=== PATIENT | male | born 1995 | race Caucasian/White ===

== ENCOUNTER 2017-03-16 19:25 | Emergency (ER) | payer BC, MEDICAID ==
[2017-03-16 19:33] VITALS: BMI 27.3
[2017-03-16 19:36] VITALS: RESP 16; TEMP 98.1
--- NOTE | 2017-03-16 19:46 | ED PDOC ---
Arrival/HPI <Karthik Siegel - Last Filed: 03/16/17 21:05> - General Historian: Patient <Chicho Mcelroy - Last Filed: 03/19/17 11:40> - General Chief Complaint: Lower Extremity Problem/Injury Time Seen by Provider: 03/16/17 19:42 - History of Present Illness Narrative History of Present Illness (Text): 03/16/17 19:43 22 y/o male, no significant pmh, nkda, c/o lt. knee pain and swelling x 2 weeks. Pt. stated that he has lt. knee pain s/p injured it from running, been feeling the lt. knee is warm, no calf pain, no fever or chills, on and off pain , no skin redness, no difficulty bending or extending the painful knee, no other medical or psychological complaints. (Chicho Mcelroy) Past Medical History - Provider Review Nursing Documentation Reviewed: Yes - Infectious Disease Hx of Infectious Diseases: None - Cardiac Hx Cardiac Disorders: No (DENIES) - Pulmonary Hx Respiratory Disorders: No (DENIES) - Musculoskeletal/Rheumatological Hx Falls: No - Psychiatric Hx Psychophysiologic Disorder: No (DENIES) Hx Substance Use: No - Anesthesia Hx Anesthesia: No - Suicidal Assessment Feels Threatened In Home Enviroment: No <Chicho Mcelroy - Last Filed: 03/19/17 11:40> Family/Social History - Physician Review Nursing Documentation Reviewed: Yes Family/Social History: Unknown Family HX Smoking Status: Never Smoked Hx Alcohol Use: No Hx Substance Use: No <Chicho Mcelroy - Last Filed: 03/19/17 11:40> Allergies/Home Meds <Karthik Siegel - Last Filed: 03/16/17 21:05> <Chicho Mcelroy - Last Filed: 03/19/17 11:40> Allergies/Adverse Reactions: Allergies No Known Allergies Allergy (Verified 03/10/15 16:24) Review of Systems - Review of Systems Constitutional: absent: Fatigue, Fevers Eyes: absent: Vision Changes ENT: absent: Hearing Changes Respiratory: absent: SOB, Cough Cardiovascular: absent: Chest Pain Gastrointestinal: absent: Abdominal Pain, Nausea, Vomiting Musculoskeletal: Arthralgias, Joint Swelling. absent: Back Pain, Neck Pain, Myalgias Skin: absent: Rash, Pruritis, Skin Lesions <Chicho Mcelroy - Last Filed: 03/19/17 11:40> Physical Exam Vital Signs Reviewed: Yes Temperature: Afebrile Blood Pressure: Normal Pulse: Regular Respiratory Rate: Normal Appearance: Positive for: Well-Appearing, Non-Toxic, Comfortable Pain Distress: Moderate Mental Status: Positive for: Alert and Oriented X 3 - Systems Exam Head: Present: Atraumatic, Normocephalic Pupils: Present: PERRL Extroacular Muscles: Present: EOMI Conjunctiva: Present: Normal Mouth: Present: Moist Mucous Membranes Neck: Present: Normal Range of Motion Respiratory/Chest: Present: Clear to Auscultation, Good Air Exchange. No: Respiratory Distress, Accessory Muscle Use Cardiovascular: Present: Regular Rate and Rhythm, Normal S1, S2. No: Murmurs Abdomen: Present: Normal Bowel Sounds. No: Tenderness, Distention, Peritoneal Signs Back: Present: Normal Inspection Upper Extremity: Present: Normal Inspection. No: Cyanosis, Edema Lower Extremity: Present: Normal Inspection, Other (Lt knee: +ttp and mild swelling anterior/medially, no erythematous rash, negative selene and stone signs, no celluitis or streaking, no ulcers, FROM without limitation, sensation intact, motor 5/5, +DPPT pulses, capillary refill< 2 second, neurovascular intact). No: Edema Neurological: Present: GCS=15, Speech Normal, Motor Func Grossly Intact, Gait Normal, Memory Normal Skin: Present: Warm, Dry, Normal Color. No: Rashes Psychiatric: Present: Alert, Oriented x 3, Normal Insight, Normal Concentration <Chicho Mcelroy - Last Filed: 03/19/17 11:40> Vital Signs Temp Pulse Resp BP Pulse Ox 03/16/17 21:55 78 16 117/72 99 03/16/17 19:35 98.1 F 81 16 120/78 97 Medical Decision Making <Karthik Siegel - Last Filed: 03/16/17 21:05> - RAD Interpretation Staff Nuclear Medicine Technologist: Radiologist <Chicho Mcelroy - Last Filed: 03/19/17 11:40> ED Course and Treatment: 03/16/17 19:45 -indocin -xray -examined the patient with Dr. siegel, no clinical indication or presentation of septic joint 03/16/17 21:11 -xray show no fracture or dislocation -Discharge home with indomethacin, vega wrap, crutches, outpatient orthopedic follow up for orthopedic for MRI, follow up with your own pmd and orthopedic within 2 days, return to the ER for any new or worsening signs or symptoms. ( Chicho Mcelroy) - RAD Interpretation Radiology Orders: 03/16/17 19:42 KNEE WITH PATELLA LEFT 3 VIEW [RAD] Stat no acute fracture or dislocation (Chicho Mcelroy) - Medication Orders Current Medication Orders: Discontinued Medications Indomethacin (Indocin) 50 mg PO STAT STA Stop: 03/16/17 19:43 Last Admin: 03/16/17 20:02 Dose: 50 mg - PA / ROCK MASON / Resident Statement DARIEL has reviewed & agrees with the documentation as recorded. DARIEL has examined the patient and agrees with the treatment plan. <Karthik Siegel - Last Filed: 03/16/17 21:05> - PA / ROCK MASON / Resident Statement DARIEL has reviewed & agrees with the documentation as recorded. DARIEL has examined the patient and agrees with the treatment plan. <Chicho Mcelroy - Last Filed: 03/19/17 11:40> Disposition/Present on Arrival <Karthik Siegel - Last Filed: 03/16/17 21:05> - Present on Arrival Any Indicators Present on Arrival: No History of DVT/PE: No History of Uncontrolled Diabetes: No Urinary Catheter: No History of Decub. Ulcer: No History Surgical Site Infection Following: None - Disposition Have Diagnosis and Disposition been Completed?: Yes Disposition Time: 19:46 Patient Plan: Discharge <Chicho Mcelroy - Last Filed: 03/19/17 11:40> - Disposition Diagnosis: Knee pain, Knee injury Disposition: HOME/ ROUTINE Condition: GOOD Additional Instructions: -Discharge home with indomethacin, vega wrap, crutches, outpatient orthopedic follow up for orthopedic for MRI, follow up with your own pmd and orthopedic within 2 days, return to the ER for any new or worsening signs or symptoms. Prescriptions: Indomethacin [Indocin] 50 mg PO TID PRN #30 cap PRN Reason: Other Referrals: Abiola Whitehead MD [Primary Care Provider] - Follow up with primary Jaxon Rosario MD [Staff Provider] - Follow up with primary Forms: Screen ([employer]), WORK NOTE
[2017-03-16 21:57] VITALS: BP 117/72; PULSE 78; O2SAT 99
--- NOTE | 2017-03-17 08:55 | RAD ---
PROCEDURE: Left Knee Radiographs. HISTORY: Pain. COMPARISON: None. FINDINGS: BONES: Bone alignment and mineralization are normal. There is no acute displaced fracture or bone destruction. JOINTS: Normal. JOINT EFFUSION: None. OTHER FINDINGS: None. IMPRESSION: No acute fracture or dislocation.
== END 2017-03-16 21:55 | disposition home or self-care (01) ==
LOC: ED 19:25
DX: S89.92XA Unspecified injury of left lower leg, initial encounter (principal); X50.0XXA Overexertion from strenuous movement or load, initial encounter; Y93.02 Activity, running; Y92.89 Other specified places as the place of occurrence of the external cause